=== PATIENT | male | born 1980 | race Caucasian/White ===

== ENCOUNTER 2019-05-26 12:25 | Outpatient (CLI) | payer OTHER ==
[2019-05-26] MEDS ORDERED: Iopamidol 370 76% 100 ML VIAL ONE (12:43)
[2019-05-26] MEDS ORDERED: Iopamidol 370 76% 50 ML VIAL FS ONE (12:43)
--- NOTE | 2019-05-26 13:38 | CT ---
EXAM: CT chest, abdomen, and pelvis with IV contrast: HISTORY: Recent diagnosis of a neck mass. Malignant neoplasm. COMPARISON: None FINDINGS: CT THORAX: Lungs: A 6 mm noncalcified pulmonary nodule is seen in the right lower lobe (image 31, series 3). No additional pulmonary nodule or mass is seen within the lungs bilaterally. Minimal dependent atelectasis is present. Pleura: No pleural effusion. Lymph nodes: No lymphadenopathy. Mediastinum: No acute process of the mediastinal structures. Chest wall: No abnormalities CT ABDOMEN AND PELVIS: Liver: Within normal limits. Gallbladder: Within normal limits. \ Pancreas: Within normal limits. Spleen: Within normal limits. Adrenal glands: Within normal limits. Kidneys: Within normal limits. Urinary Bladder: The urinary bladder is unremarkable. Reproductive organs: Within normal limits for patient's age. Bowel: Normal in caliber. Adenopathy:Mildly prominent nonspecific left para-aortic lymph node is seen just below the level of t he renal vessels measuring 11 mm in short axis dimension. No additional enlarged lymph nodes are seen by CT size criteria. Peritoneum: No free fluid or fluid collection is seen. No free intraperitoneal gas is identified. Abdominal wall: Small fat-containing umbilical hernia is present. Osseous structures: There is a unilateral right-sided pars defect at L5. No suspicious lytic or scler otic osseous lesions are identified. IMPRESSION: 1. Noncalcified 6 mm pulmonary nodule right lower lobe. Follow-up evaluation in 4-6 months is recomme nded. 2. Nonspecific mildly prominent left para-aortic lymph node measuring 11 mm in short axis dimension. No additional enlarged lymph nodes are seen. 3. Small fat-containing umbilical hernia.
== END 2019-05-26 12:26 | disposition home or self-care (01) ==
LOC: CT 12:25
PROVIDERS: ATTEND Otolaryngology Plastic Surgery within the Head & Neck
DX: C80.1 Malignant (primary) neoplasm, unspecified (principal); R22.1 Localized swelling, mass and lump, neck; R59.0 Localized enlarged lymph nodes; R91.1 Solitary pulmonary nodule; K42.9 Umbilical hernia without obstruction or gangrene
CPT/HCPCS: 71260; 74177; Q9967

== ENCOUNTER 2019-05-27 07:36 | Day surgery (SDC) | payer OTHER ==
[2019-05-26 15:34] VITALS: BMI 29.5
[2019-05-27] MEDS ORDERED: EPINEPHrine 1 MG/ML AMP ONE (09:27)
[2019-05-27] MEDS ORDERED: Fentanyl 100 MCG/2 ML VIAL ONE (09:43)
[2019-05-27] MEDS ORDERED: Midazolam HCl 2 mg/2 ml Vial ONE (09:43)
[2019-05-27] MEDS ORDERED: Ferric Subsulfate (ASTRINGYN) 8 ML VIAL ONE (09:49)
[2019-05-27] MEDS ORDERED: methylPREDNISolone Acetate 40 mg/ml Vial ONE (10:21)
[2019-05-27] MEDS ORDERED: Meperidine HCl/PF 25 MG/ML VIAL ONE (10:40)
[2019-05-27] MEDS ORDERED: Lidocaine 1% PF 5 ML VIAL ONE (11:14)
[2019-05-27] MEDS ORDERED: Succinylcholine Chloride 20 MG/ML 10 ml SYRINGE FS ONE (11:14)
[2019-05-27] MEDS ORDERED: Ondansetron PF 4 MG/2 ML Vial ONE (11:14)
[2019-05-27] MEDS ORDERED: PROPOFOL 200 MG/20 ML VIAL ONE (11:14)
[2019-05-27] MEDS ORDERED: Dexamethasone 20 MG/5 ML VIAL ONE (11:14)
[2019-05-27] MEDS ORDERED: Hydrocodone-Acetamin 15 ML UDCUP ONE (11:28)
--- NOTE | 2019-05-28 09:18 | OP ---
DATE OF PROCEDURE: 05/27/2019 PREOPERATIVE DIAGNOSIS: Metastatic left neck squamous cell carcinoma. POSTOPERATIVE DIAGNOSIS: Metastatic left neck squamous cell carcinoma. PROCEDURES PERFORMED: 1. Direct laryngoscopy with biopsies. 2. Exam of the nasopharynx with biopsies. 3. Tonsillectomy. ESTIMATED BLOOD LOSS: 0 mL. COMPLICATIONS: None. ANESTHESIA: GETA. DESCRIPTION OF PROCEDURE: The patient was taken to the operating room and placed supine on the table. General endotracheal anesthesia was obtained by the Anesthesia Staff. Tube was secured in the left lower lip. A shoulder roll was placed and the upper tooth guard was also placed. The Dedo laryngoscope was then used to visualize the oral cavity, oropharynx, and hypopharynx. The left tonsil was noted to be moderately enlarged and firm compared to the right tonsil. The base of tongue showed no mucosal lesions. The pharyngeal wall showed no mucosal lesions. The pyriform sinuses, vallecula, epiglottis, true vocal cords, and subglottic area up-biting biopsy forceps were used to take random deep biopsies of the tongue base bilaterally and as well as the nasopharynx. Following this, the curved Allis clamp was used to grasp the tonsils and medialize the tonsil and extracapsular tonsillectomy was performed bilaterally. Hemostasis was controlled using the Bovie. The oral cavity was then irrigated. The patient tolerated the procedure well. Job ID: [id number]
== END 2019-05-27 12:25 | disposition home or self-care (01) ==
LOC: SDC 07:36
PROVIDERS: ATTEND Otolaryngology Plastic Surgery within the Head & Neck
PROC: 0CBM8ZX Excision of Pharynx, Via Natural or Artificial Opening Endoscopic, Diagnostic (ICD-10-PCS; principal; 2019-05-27)
PROC: 0CTPXZZ Resection of Tonsils, External Approach (ICD-10-PCS; principal; 2019-05-27)
DX: C09.9 Malignant neoplasm of tonsil, unspecified (principal); J32.9 Chronic sinusitis, unspecified; J34.3 Hypertrophy of nasal turbinates; J34.2 Deviated nasal septum; R59.0 Localized enlarged lymph nodes; K21.9 Gastro-esophageal reflux disease without esophagitis; J30.9 Allergic rhinitis, unspecified; F17.220 Nicotine dependence, chewing tobacco, uncomplicated; Z79.899 Other long term (current) drug therapy; J35.01 Chronic tonsillitis
CPT/HCPCS: 88304; 88305; 88342; J0171; J1030; J1100; J2001; J2175; J2250; J2405; J2704; J3010

== ENCOUNTER → 2019-06-08 | Day surgery (SDC) | payer OTHER ==
[~2019-06-08] MED LIST: Heparin 1,000 UNITS/ML VIAL ONE
--- NOTE | 2019-06-08 08:23 | SPC ---
SPC CVP LINE PICC INITAL >5: 06/08/2019 8:20 AM INDICATION: Chemotherapy; need for long-term IV access PROCEDURE: Peripherally placed 48 cm left single lumen power PICC line. PICC Line Placement: The left arm was prepped and draped in sterile fashion. One percent lidocaine was used for local anesthetic. Under fluoroscopic and ultrasound guidance, the left basilic vein was patent and accessed with a micr opuncture needle. A guide wire was then advanced into the left basilic vein. A vascular sheath was then advanced over a guide wire, and a single lumen PICC line was trimmed. The PICC line was th en advanced into the central venous system. A final placement film demonstrates the tip of the catheter terminated in the caval-atrial junction. After confirmation of the catheter position, the catheter was sutured in place at the skin entry site . There was no immediate complication. Total fluoroscopic time 0.5 minutes. Total exposure 3564 mgray/sq cm IMPRESSION: Peripheral placement of a single lumen power PICC line into the left basilic vein using fluoroscopic and ultrasound guidance.
== END ==
LOC: SPEC 07:25
PROVIDERS: ATTEND Internal Medicine Hematology & Oncology
PROC: 02HV33Z Insertion of Infusion Device into Superior Vena Cava, Percutaneous Approach (ICD-10-PCS; principal; 2019-06-08)
DX: C09.8 Malignant neoplasm of overlapping sites of tonsil (principal)
CPT/HCPCS: 36569; C1751; J1644

== ENCOUNTER 2019-07-31 10:29 | Day surgery (SDC) | payer OTHER ==
[2019-07-31] MEDS ORDERED: Fentanyl 100 MCG/2 ML VIAL ONE (11:06)
[2019-07-31] MEDS ORDERED: Midazolam HCl 2 mg/2 ml Vial ONE (11:06)
[2019-07-31] MEDS ORDERED: Ondansetron PF 4 MG/2 ML Vial ONE (11:08)
[2019-07-31] MEDS ORDERED: Lidocaine 1% PF 5 ML VIAL ONE (11:33)
[2019-07-31] MEDS ORDERED: PROPOFOL 200 MG/20 ML VIAL ONE (11:33)
--- NOTE | 2019-07-31 19:32 | OP ---
DATE OF PROCEDURE: 07/31/2019 PROCEDURES PERFORMED: Esophagogastroduodenoscopy with percutaneous endoscopic gastrostomy tube placement. 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 He has had a 40-pound weight loss over the course of radiation therapy. DESCRIPTION OF PROCEDURE: Informed consent was obtained from the patient. He was sedated with total intravenous anesthesia. The bite block was placed and the endoscope was advanced easily to the second portion of the duodenum and retroflexion was performed in the stomach. The esophagus was normal. The GE junction was normal. The stomach was normal including retroflexed views. The pylorus and first and second portions of the duodenum were normal. The appropriate site under the left ribs close to the midline was transilluminated. Site was palpated and the appropriate site was identified for PEG tube placement. The stomach was fully insufflated. The skin was sterilized with chlorhexidine. He did receive 2 g of Ancef prior to incision. The skin was anesthetized with 5 mL of 1% lidocaine. A small skin incision about 1 cm was performed. The catheter was placed through the abdominal wall into the stomach under direct visualization easily in one attempt. The wire was placed through the catheter and grasped with snare and pulled out through the patient's mouth. The 20-English gastrostomy tube was then placed by the pull-through technique. There was a rubber internal bumper. The external bumper was placed at 3.5 cm. Antibiotic ointment was applied to the skin site. The site was dressed and the procedure was tolerated well without immediate complications. IMPRESSION: 1. Normal esophagogastroduodenoscopy. 2. Successful placement of 20-English percutaneous endoscopic gastrostomy tube with the external bumper at 3.5 cm. RECOMMENDATIONS: 1. Start feeds in 8 hours. 2. Loosen the external bumper by 1 cm tomorrow morning. 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 He also has option of coming in the hospital while I am on-call tomorrow, and I can loosen it then. The patient's will talk to the dietitian this afternoon. He can start feeds in 8 hours. Job ID: [id number]
== END 2019-07-31 13:15 | disposition home or self-care (01) ==
LOC: SDC 10:29
PROVIDERS: ATTEND Internal Medicine Gastroenterology
PROC: 0DH63UZ Insertion of Feeding Device into Stomach, Percutaneous Approach (ICD-10-PCS; principal; 2019-07-31)
DX: K12.33 Oral mucositis (ulcerative) due to radiation (principal); R13.12 Dysphagia, oropharyngeal phase; C06.9 Malignant neoplasm of mouth, unspecified; Y84.2 Radiological procedure and radiotherapy as the cause of abnormal reaction of the patient, or of later complication, without mention of misadventure at the time of the procedure
CPT/HCPCS: J2001; J2250; J2405; J2704; J3010

== ENCOUNTER 2019-08-11 12:50 | Day surgery (SDC) | payer OTHER ==
[2019-08-11] MEDS ORDERED: Acetaminophen 500 MG TAB PO PRN (13:16)
[2019-08-11] MEDS ORDERED: diphenhydrAMINE 25 MG CAP PO PRN (13:17)
[2019-08-11] MEDS ORDERED: Sodium Chloride 0.9% 20 ML ONE (13:18)
[2019-08-11 17:41] LABS: #Lymphocytes 0.3 thou/uL (1.20-3.40); #Monocytes 0.3 thou/uL (0.11-0.59); #Neutrophils 1.7 thou/uL (1.40-6.50); %Basophils 0.2 % (0.0-1.0); %Eosinophils 0.3 % (0.0-10.0); %Lymphocytes 13.1 % (21.0-51.0); %Monocytes 14.3 % (0.0-10.0); %Neutrophils 72.1 % (42.0-75.0); Hemoglobin 8.7 g/dL (14.0-18.0); Mean Corpuscular HGB CONC 33.1 g/dL (32.0-36.0); Mean Corpuscular Hemoglobin 31.7 pg (27.0-31.0); Mean Corpuscular Volume 95.9 fL (78.0-98.0); Mean Platelet Volume 7.4 fL (7.4-10.4); Platelet Count 138 thou/uL (130-400); RBC Distribution Width 15.5 % (11.5-14.5); Red Blood Cell (RBC) Count 2.74 mill/uL (4.70-6.10); White Blood Cell (WBC) Count 2.3 thou/uL (4.8-10.8)
[2019-08-11 17:50] VITALS: TEMP 97.9
[2019-08-11 18:01] VITALS: BP 149/85
== END 2019-08-11 18:06 | disposition home or self-care (01) ==
LOC: ONC/OP 12:50
PROVIDERS: ATTEND Internal Medicine Hematology & Oncology
PROC: 30233N1 Transfusion of Nonautologous Red Blood Cells into Peripheral Vein, Percutaneous Approach (ICD-10-PCS; principal; 2019-08-11)
DX: D64.9 Anemia, unspecified (principal); D69.6 Thrombocytopenia, unspecified; C09.8 Malignant neoplasm of overlapping sites of tonsil
CPT/HCPCS: 36430; 80053; 82248; 83615; 83735; 84100; 84550; 85025; 86850; 86900; 86901; P9016; Q0163

== ENCOUNTER 2019-08-25 08:36 | Day surgery (SDC) | payer OTHER ==
[2019-08-25] MEDS ORDERED: Acetaminophen 500 MG TAB PO PRN (09:11)
[2019-08-25] MEDS ORDERED: diphenhydrAMINE 25 MG CAP PO PRN (09:12)
[2019-08-25] MEDS ORDERED: Sodium Chloride 0.9% 30 ML ONE (09:18)
--- NOTE | 2019-08-25 09:20 | RAD ---
Chest 2 views HISTORY: Anemia. FINDINGS: Cardiac silhouette and pulmonary vasculature are within normal limits. Mediastinum is midline with left upper extremity PICC in place. No confluent airspace consolidation, pneumothorax, or pleural fluid evident. IMPRESSION : No active cardiopulmonary abnormalities are demonstrated.
[2019-08-25] MEDS ORDERED: Sodium Chloride 0.9% 20 ML ONE (09:25)
[2019-08-25 12:04] VITALS: BP 132/80; TEMP 97.8
[2019-08-25 12:49] LABS: Hemoglobin 8.4 g/dL (14.0-18.0); Mean Corpuscular HGB CONC 33.8 g/dL (32.0-36.0); Mean Corpuscular Hemoglobin 32.5 pg (27.0-31.0); Mean Corpuscular Volume 96.2 fL (78.0-98.0); Platelet Count 177 thou/uL (130-400); RBC Distribution Width 15.5 % (11.5-14.5); White Blood Cell (WBC) Count 2.9 thou/uL (4.8-10.8)
[2019-08-25 13:28] LABS: Anisocytosis SLIGHT = 6-15 cells (100X) (0-5/hpf); Band 11 % (5-11); Lymphocytes 14 % (21-51); MDiff Complete? YES; Monocytes 15 % (0-10); Neutrophil 60 % (42-75); Polychromasia SLIGHT = 2-3 cells (100X) (0-2/hpf); Spherocytes SLIGHT = 1-5 cells (100X) (None Seen)
== END 2019-08-25 15:48 | disposition home or self-care (01) ==
LOC: RAD 08:36 → ONC/OP 15:48
PROVIDERS: ATTEND Internal Medicine Hematology & Oncology
PROC: 30233N1 Transfusion of Nonautologous Red Blood Cells into Peripheral Vein, Percutaneous Approach (ICD-10-PCS; principal; 2019-08-25)
DX: D64.9 Anemia, unspecified (principal); D69.6 Thrombocytopenia, unspecified
CPT/HCPCS: 36430; 71046; 85025; 86850; 86900; 86901; J1642; P9016; Q0163

== ENCOUNTER 2019-09-18 12:25 | Outpatient (CLI) | payer OTHER ==
--- NOTE | 2019-09-18 16:32 | ULT ---
EXAM: BILATERAL RENAL ULTRASOUND COMPLETE: 09/18/19 HISTORY: Abnormal kidney function. COMPARISON: 05/26/19 CT abdomen and pelvis. FINDINGS: The right kidney measures 10.1 x 5.3 x 5.1 cm. The left kidney measures 10.2 x 5.9 x 6.1 cm. No renal hydronephrosis or perinephric process. The urinary bladder appears unremarkable. IMPRESSION: Unremarkable bilateral renal ultrasound. No hydronephrosis. POS: [facility]
== END 2019-09-18 12:26 | disposition home or self-care (01) ==
LOC: BICULT 12:25
PROVIDERS: ATTEND Internal Medicine Hematology & Oncology
DX: R94.4 Abnormal results of kidney function studies (principal)
CPT/HCPCS: 76770

== ENCOUNTER 2019-09-30 13:41 | Emergency (ER) | payer OTHER ==
[2019-09-30 14:08] LABS: #Eosinphils 0.1 thou/uL (0.0-0.7); #Lymphocytes 0.8 thou/uL (1.20-3.40); #Monocytes 0.4 thou/uL (0.11-0.59); #Neutrophils 2.4 thou/uL (1.40-6.50); %Basophils 0.4 % (0.0-1.0); %Eosinophils 1.4 % (0.0-10.0); %Lymphocytes 22.2 % (21.0-51.0); %Monocytes 11.1 % (0.0-10.0); Hemoglobin 9.1 g/dL (14.0-18.0); Mean Corpuscular HGB CONC 35.6 g/dL (32.0-36.0); Mean Corpuscular Volume 98.3 fL (78.0-98.0); Mean Platelet Volume 7.6 fL (7.4-10.4); Platelet Count 154 thou/uL (130-400); RBC Distribution Width 14.1 % (11.5-14.5); Red Blood Cell (RBC) Count 2.61 mill/uL (4.70-6.10); White Blood Cell (WBC) Count 3.7 thou/uL (4.8-10.8)
[2019-09-30 14:33] LABS: ALT (SGPT) 19 U/L (8-55); AST (SGOT) 17 U/L (5-34); Albumin 4.1 g/dL (3.5-5.0); Alkaline Phosphatase 121 U/L (40-110); Anion Gap 13 mmol/L (10-20); BUN (Urea Nitrogen) 46 mg/dL (8.9-20.6); Bilirubin, Total 0.2 mg/dL (0.2-1.2); Calc. Creatinine Clearance 0 mL/min (70-130); Calcium 9.7 mg/dL (7.8-10.44); Carbon Dioxide 24 mmol/L (22-29); Chloride 104 mmol/L (98-107); Estimated GFR-MDRD 37; Globulin 2.9 g/dL (2.4-3.5); Glucose 90 mg/dL (70-105); Potassium 4.9 mmol/L (3.5-5.1); Sodium 136 mmol/L (136-145)
--- NOTE | 2019-09-30 15:50 | CT ---
CT BRAIN WITHOUT CONTRAST: HISTORY: Syncope FINDINGS: No evidence of acute infarct, hemorrhage, midline shift or abnormal extra-axial fluid collections is seen. The ventricular size is appropriate and the basilar cisterns are patent. The bony calvarium is intact. There is mucosal disease in the paranasal sinuses. IMPRESSION: No CT evidence of acute intracranial process.
[2019-09-30 16:49] LABS: Bilirubin Negative (Negative); Blood, Urine Negative (Negative); Clarity Clear (Clear); Glucose, Urine (Dipstick) Normal (Negative); Leukocyte Negative Leu/uL (Negative); Nitrite Negative (Negative); Protein, Urine (Dipstick) Negative (Neg-Trace); Urobilinogen Normal mg/dL (Less than 2)
--- NOTE | 2019-09-30 16:54 | NM ---
RADIONUCLIDE PERFUSION SCAN: 09/30/19 HISTORY: 38-year-old male with syncope. RADIOPHARMACEUTICAL: 6.5 millicuries technetium 99m MAA injected intravenously. CORRELATION: Chest radiograph of same date of 4:11 p.m. FINDINGS: Fairly homogeneous tracer distribution seen in the lung beyer bilaterally without pleural based wedg e shaped segmental loss of segmental defects. IMPRESSION: No evidence of pulmonary embolism. POS: [facility]
--- NOTE | 2019-09-30 16:55 | RAD ---
PA AND LATERAL VIEWS CHEST: 09/30/19 HISTORY: Syncope. COMPARISON: 08/25/19. FINDINGS: Left sided PICC line remains in place. The heart size is normal. The lungs are well expanded and carmen r. The bony thorax is normal. IMPRESSION: No acute process. POS: [facility]
--- NOTE | 2019-10-03 17:05 | EKG ---
Test Reason : SYNCOPE Blood Pressure : / mmHG Vent. Rate : 066 BPM Atrial Rate : 066 BPM P-R Int : 126 ms QRS Dur : 092 ms QT Int : 394 ms P-R-T Axes : 041 044 039 degrees QTc Int : 413 ms Normal sinus rhythm Normal ECG Confirmed by KRISTIE OSHEA ([id number]), movie editor WILIAM LINTON ([id number]) on 10/03/2019 5:05:39 PM Referred By: HARDIK Confirmed By:KRISTIE Shelton
== END 2019-09-30 18:21 | disposition home or self-care (01) ==
LOC: ERS 13:41
DX: R55 Syncope and collapse (principal); R53.1 Weakness; F32.9 Major depressive disorder, single episode, unspecified; Z87.891 Personal history of nicotine dependence; Z79.891 Long term (current) use of opiate analgesic; Z79.899 Other long term (current) drug therapy
CPT/HCPCS: 36415; 70450; 71046; 78451; 80053; 81003; 83605; 83735; 84443; 84484; 85025; 86850; 86900; 86901; 93005; 94760; 96360; 96361; A9540